=== PATIENT | female | born 1955 | race Caucasian/White ===

== ENCOUNTER 2016-09-28 09:48 | Outpatient (CLI) | payer OTHER ==
--- NOTE | 2016-09-28 12:20 | DIAGNOSTIC IMAGING REPORT ---
PROCEDURE: CT THORAX ABD PELVIS W/CONT INDICATION: BREAST CA, follow-up TECHNIQUE: 100 ml of Isovue 300 injected intravenously and axial images were obtained of the entire thorax, abdomen, and pelvis with sagittal and coronal reformations. COMPARISON: CT chest/abdomen/pelvis 03/29/2016. FINDINGS: THORAX: Bilateral mastectomies and left axillary surgical clips. Stable 5 ml right major fissure nodule (image 20). New 3 mm posterior right upper lobe ( image 21) and 4 mm right upper lobe nodules (image 29). Progression of five 4 mm right major fissure nodule, previously 2 mm (image 33). Stable 3 mm right lower lobe nodule (image 34). New 7 mm right posterior sulcus nodule. Slight progression of 3 mm left lobe nodule (image 17). Stable 3 mm left upper lobe subpleural nodule (image 18). New 3 mm left major fissure nodule (image 24). Stable of 4 mm left major fissure nodule (image 26). Possible new 4 mm left perihilar nodule versus vessel and a artifacts (image 27). Stable pretracheal lymph node. Slight progression of left hilar lymph node 1.8 cm (previously 1.6 cm). No effusion. Heterogeneous multinodular thyroid gland. Mild atherosclerosis of the aorta and the coronaries. Heart size is normal. No pericardial effusion. No suspicious osseous lesions. ABDOMEN: There is a 1.6 cm heterogeneous low-density structure with peripheral enhancement just cephalad to the left portal vein by the falciform ligament with minor dilation of some of the left hepatic lobe of bile ducts, suspicious for metastasis. Cholecystectomy. Pancreas, spleen, kidneys and adrenal glands are normal. Moderate atherosclerosis of the aorta. Nonspecific bowel gas pattern. PELVIS: Normal appendix. The uterus, adnexa and bladder are unremarkable. No pelvic mass, adenopathy or free fluid. Severe L4-5 disc space narrowing and grade 1 L5-S1 anterolisthesis. IMPRESSION: 1. Bilateral mastectomies 2. Slight increase in the number of small pulmonary nodules, slight progression of left hilar adenopathy and 1.6 cm heterogeneous hepatic mass most consistent with metastases 3. Stable heterogeneous thyroid gland 4. Cholecystectomy All CT scans at this facility use dose modulation, iterative reconstruction, and/or weight-based dosing when appropriate to reduce radiation dose to as low as reasonably achievable.
== END 2016-09-28 23:00 ==
LOC: CT SRH 09:48
DX: C50.919 Malignant neoplasm of unspecified site of unspecified female breast (principal); Z90.13 Acquired absence of bilateral breasts and nipples; R59.0 Localized enlarged lymph nodes

== ENCOUNTER 2016-10-01 08:50 | Outpatient (CLI) | payer OTHER ==
--- NOTE | 2016-10-01 14:38 | DIAGNOSTIC IMAGING REPORT ---
PROCEDURE: NM BONE/JOINT WHOLE BODY INDICATION: BREAST CA, follow-up TECHNIQUE: 27 mCi of technetium-99m MDP. Delayed anterior and posterior whole body images were obtained. COMPARISON: CT chest/abdomen/pelvis 09/28/2016 and bone scan 04/05/2016. FINDINGS: Minimal progression of left anterior fifth rib uptake. No change in the target like increased uptake in the right occiput. Increased uptake of the left ninth rib posteriorly corresponds to a healing fracture. Stable increased uptake of the bilateral sternoclavicular joints and L4-5 corresponding to degenerative changes. Stable increased uptake of the left 12th rib correspond to sclerosis on the CT scan. Progression of increased uptake in the right femoral neck medially, without evidence of destructive changes on CT scan suggestive of enthesopathy. IMPRESSION: 1. Mild progression of increased uptake of the left anterior fifth rib with stable uptake of the skull and left 12th rib consistent with metastatic disease 2. Increased uptake in the left ninth rib posteriorly corresponds to a healing fracture 3. Increasing uptake of the right femoral neck medially suggestive of enthesopathy.
== END 2016-10-01 23:00 ==
LOC: NM SRH 08:50
DX: C50.919 Malignant neoplasm of unspecified site of unspecified female breast (principal)

== ENCOUNTER 2016-11-29 10:33 | Outpatient (CLI) | payer OTHER ==
--- NOTE | 2016-11-29 11:33 | DIAGNOSTIC IMAGING REPORT ---
PROCEDURE: XR HIP 2VW W W/O AP PELVIS-RT INDICATION: RIGHT HIP TRAUMA/PAIN/CA TECHNIQUE: AP view of the pelvis and hips with lateral view of the right hip. COMPARISON: None. FINDINGS: L5-S1 spondylosis. Right HIP: Osseous structures and joint spaces are normal. PELVIS: Osseous pelvis is normal. IMPRESSION: 1. Negative pelvis and right hip. 2. Spondylosis L5-S1.
== END 2016-11-29 23:00 ==
LOC: XR SRH 10:33
DX: M47.817 Spondylosis without myelopathy or radiculopathy, lumbosacral region (principal)